=== PATIENT | male | born 1995 | race Hispanic/Latino ===

== ENCOUNTER 2019-12-11 06:36 | Day surgery (SDC) | payer OTHER, SELFPAY ==
[2019-12-10 08:20] VITALS: BMI 46.2
[2019-12-11] VITALS (9 sets, daily range): BP systolic 134–153; BP diastolic 76–104; PULSE 79–118; RESP 11–18; TEMP 36.2–36.6; O2SAT 92–98; BMI 47.5
[2019-12-11] MEDS: LACTATED RINGERS 1,000 ML 42 ML IV ×2 (07:11→08:59)
--- NOTE | 2019-12-11 07:37 | PM.PREOP ---
Pre-operative Note Interval Note History & Physical reviewed/Exam performed by Physician: Yes Changes to H&P: No
[2019-12-11] MEDS: CEFAZOLIN VIAL 3 GM in SODIUM CHLORIDE 0.9% 100 ML 200 ML IV (07:50)
--- NOTE | 2019-12-11 08:16 | SUR.OPER ---
Supine on padded OR bed, head on pillow, arms secured on padded arm boards at <90 degrees abduction, legs uncrossed, safety belt at thigh, tape over blanket over lower legs.
[2019-12-11] MEDS: BUPIVACAINE LIPOSOME 266 MG/20 ML VIAL INJ (08:29)
--- NOTE | 2019-12-11 09:06 | P.OP_ITS ---
Operative Date/Time/Diagnoses Date of procedure: 12/11/19 Time of procedure: 09:06 Pre-op diagnosis: Phimosis Post-op diagnosis: same Procedure & Clinicians Procedure: 1. Adult circumcision Same procedure as scheduled: Yes Indications: Phimosis Click Yes if Unassisted: Yes Anesthesia Type: General and Local (1.33% Exparel) Operative Notes Findings: Chronic inflammation and hypopigmentation of the inner and external pr eputial skin surfaces. Closure Type: primary Specimen(s): none sent Estimated Blood Loss (mL): 5 Blood products transfused: none Tourniquet time (min): 0 Procedure in detail: The patient was positioned supine was administered general anesthesia. The lower abdomen and genitalia were then prepped and draped in sterile fashion. A dorsal penile and circumferential cutaneous block were then performed local anesthetic. A straight hemostatic clamp was placed at the midline dorsum of the prepuce in engaged for crush hemostasis. The inner prepuce and glans were then cleansed with Betadine solution. Appropriate lines were then created with a surgical marker on the inner and external preputial skin surface. Circumferential incisions were then made on the inner and external surfaces. The intervening subcutaneous tissue was then divided with the cautery pen. Hemostasis was obtained with cautery pen. Next intermittent 4 0 chromic sutures were placed at the 1236 and 9:00 a.m. positions for rough approximation of the inner and external skin surface edges. Next, a continuous vertical mattress of 4 0 chromic was placed to reapproximate the inner in external preputial skin edges. The genitalia were then cleaned and dried. A multilayer dressing consisting of a 1st layer of Xeroform gauze, followed by 2 in Kerlix, followed by 2 in Coban, and then the apparatus was secured in place with 1 in clear plastic tape in usual fashion. The patient was then awakened, transferred to a gurney, and transferred recovery in stable condition. Complications: none Post-operative Condition: stable Disposition: PACU Plan for aftercare: Discharge home
[2019-12-11] MEDS: OXYCODONE/ACETAMINOPHEN 5/325 TABLET 1 TAB PO (10:27)
--- NOTE | 2019-12-11 10:31 | SUR.PHASEII ---
1010 Mother said patient is ready to go, assumed care from Shazia Da Silva RN. Dressing CDI, denies nausea, pain 02/27. Pt states that he's had applesauce; plan - give PO rx prior to discharge. Stable, very pleasant. Instructions reviewed with patient and mother.
== END 2019-12-11 10:30 | disposition home or self-care (01) ==
PROVIDERS: Family Provider Family Medicine; PCP Family Medicine; Referring Provider Family Medicine; Visit Provider Specialist
PROC: (CPT 54161; principal; 2019-12-11 07:45)
DX: N47.1 Phimosis (principal); N48.30 Priapism, unspecified; I10 Essential (primary) hypertension; G47.33 Obstructive sleep apnea (adult) (pediatric); E66.01 Morbid (severe) obesity due to excess calories; Z68.42 Body mass index [BMI] 45.0-49.9, adult; Z87.891 Personal history of nicotine dependence
CPT/HCPCS: 54161; C9290; J0690; J1100; J1885; J2250; J2405; J2704; J3010